=== PATIENT | female | born 2000 | race American Indian/Alaskan Native ===

== ENCOUNTER 2022-06-17 17:31 | Emergency (ER) | payer MEDICAID ==
[2022-06-17 20:15] VITALS: BP 122/63
--- NOTE | 2022-06-18 00:06 | Emergency Department Report ---
Eye Injury/Foreign Body - HPI Eye Location: Right Severity: Mild Tetanus Status: Up to Date Eye Symptoms: Eye Redness: Yes (Irritation to the abdomen while blinking. No blurred vision. No discharge occasional tearing), Grinding/Hammering Metal: No, Used Eye Protection: No, Contact Lens Use: No, Recalls Injury: No ED Review of Systems ROS: Stated complaint: EYE Other details as noted in HPI Comment: All other systems reviewed and negative ED Past Medical Hx - Medications Home Medications: Home Medications Medication Instructions Recorded Confirmed Last Taken Type Olopatadine HCl [Pataday 0.2%] 1 drop OP QDAY #1 bottle 06/17/22 Unknown Rx Eye Injury Exam - Exam General: Vital signs noted. No distress. Alert and acting appropriately. ED Course Vital Signs 06/17/22 20:14 Temperature 98.8 F Pulse Rate 78 Respiratory 18 Rate Blood Pressure 122/63 O2 Sat by Pulse 100 Oximetry Critical care attestation.: If time is entered above; I have spent that time in minutes in the direct care of this critically ill patient, excluding procedure time. ED Disposition Clinical Impression: Conjunctivitis Disposition: 01 HOME / SELF CARE / HOMELESS Is pt being admited?: No Does the pt Need Aspirin: No Condition: Stable Instructions: How to Use Eye Drops and Eye Ointments Prescriptions: Olopatadine HCl [Pataday 0.2%] 1 drop OP QDAY #1 bottle Referrals: [facility] [Provider Group] - 3-5 Days ED Eye Prob EXAM - General Limitations: No Limitations Head exam: Positive: atraumatic Eyelids: Normal Inspection: Left Pupils: Regular, Round: Bilateral Sclera: Injection: Right (No foreign bodies present. No evidence of any abrasion)
== END 2022-06-18 00:41 | disposition home or self-care (01) ==
LOC: ED 17:31
DX: H10.9 Unspecified conjunctivitis (principal)
CPT/HCPCS: 99282